=== PATIENT | male | born 1930 | race Caucasian/White ===

== ENCOUNTER 2017-11-16 00:48 | Inpatient (IN) | payer OTHER ==
[2017-11-16] MEDS ORDERED: FENTANYL CITR 100 MCG/2 ML ONE (01:52)
[2017-11-16 02:10] LABS: Protime INR 1.03
[2017-11-16 02:16] LABS: Absolute Lymphocytes (CBC) 0.9 K/uL (0.7-4.9); Absolute Monocytes 0.7 K/uL (0.1-1.3); Absolute Neutrophil 4.1 K/uL (1.8-8.0); Basophils % 0.8 % (0-1.3); Eosinophils % 7.8 % (0-4.4); Lymphocytes % 14.9 % (15.3-44.8); MCH 31.2 pg (27.0-35.0); MCV 89.9 fL (80-100); MPV 9.9 fL (7.6-11.3); Monocytes % 11.6 % (3.3-12.3); RBC Red Blood Cell Count 3.67 M/uL (4.33-5.43)
[2017-11-16 02:32] LABS: Potassium 4.4 mEq/L (3.6-5.0)
[2017-11-16 02:38] LABS: Albumin 2.9 g/dL (3.2-5.5); Bilirubin Direct 0.1 mg/dL (0-0.2); Bilirubin Total 0.7 mg/dL (0.3-1.2); Magnesium 1.9 mg/dL (1.8-2.5); Protein, Total 6.4 g/dL (6.0-8.3)
[2017-11-16 02:41] LABS: CKMB Creatine Kinase MB 1.9 ng/ml (0.3-4.0)
[2017-11-16] MEDS ORDERED: NA CHLORIDE 0.9% 1,000 ML ONE (03:43)
[2017-11-16] MEDS ORDERED: NA CHLORIDE 0.9% 250 ML ONE (03:43)
--- NOTE | 2017-11-16 04:19 | EDPHYS ---
Physician Documentation [facility] Name: Stephon Garcia Age: 87 yrs Sex: Male : 1930 Arrival Date: 11/16/2017 Time: 00:51 Bed 19 Private MD: ED Physician Thai Benoit HPI: 11/16 01:24 This 87 yrs old Male presents to ER via EMS with complaints of Fall Injury. cp 01:24 Details of fall: The patient fell from an upright position. cp 01:24 Onset: The symptoms/episode began/occurred 3 day(s) ago. Associated injuries: The cp patient sustained left hip, decreased range of motion, deformity. Severity of symptoms: in the emergency department the symptoms are unchanged. Historical: - Allergies: 01:02 No Known Allergies; fc - Home Meds: 01:02 vancomycin 750 mg intravenous solr twice a day [Active]; clopidogrel 75 mg oral tab 1 fc tab once daily [Active]; tamsulosin 0.4 mg oral cp24 1 cap once daily [Active]; enoxaparin 30 mg/0.3 mL subcutaneous syrg once daily [Active]; lisinopril 5 mg Oral tab 1 tab once daily [Active]; aspirin 81 mg Oral TbEC 1 tab once daily [Active]; ascorbic acid (vitamin C) 500 mg tab daily [Active]; docusate sodium 100 mg Oral cap 1 cap 2 times per day [Active]; atorvastatin 40 mg oral tab 1 tab nightly [Active]; albuterol sulfate 2.5 mg /3 mL (0.083 %) Inhl nebu q8 hrs prn [Active]; acetaminophen 325 mg Oral tab 2 tabs q4h prn [Active]; Tylenol-Codeine #3 300-30 mg oral tab 1 tab q 4 hrs prn moderate to severe pain [Active]; - PMHx: 01:02 Acute kidney failure; CAD; Atrial Fib; cognitive communication deficit; Hyperlipidemia; fc dysphagia; 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 - Social history:: Smoking status: Patient/guardian denies using tobacco. - Ebola Screening: : Patient negative for fever greater than or equal to 101.5 degrees Fahrenheit, and additional compatible Ebola Virus Disease symptoms Patient denies exposure to infectious person Patient denies travel to an Ebola-affected area in the 21 days before illness onset. ROS: 01:30 Constitutional: Negative for body aches, chills, fever, poor PO intake. cp 01:30 Eyes: Negative for injury, pain, redness, and discharge. cp 01:30 ENT: Positive for drainage from ear(s), hearing loss. 01:30 Cardiovascular: Negative for chest pain, edema. 01:30 Respiratory: Negative for cough, shortness of breath, wheezing. 01:30 Abdomen/GI: Negative for abdominal pain, black/tarry stool, rectal bleeding. 01:30 MS/extremity: Positive for injury or acute deformity, pain, tenderness, of the left hip. 01:30 Skin: Negative for rash. 01:30 Neuro: Negative for altered mental status, headache. 01:30 All other systems are negative. Exam: 01:33 Constitutional: The patient appears in no acute distress, alert, awake, cp non-diaphoretic, non-toxic, well developed, frail. 01:33 Head/Face: Normocephalic, atraumatic. cp 01:35 Eyes: Periorbital structures: appear normal, Pupils: equal, round, and reactive to cp light and accomodation, Extraocular movements: intact throughout, Conjunctiva: normal, no exudate, no injection, Sclera: no appreciated abnormality, Lids and lashes: appear normal, bilaterally. 01:35 ENT: External ear(s): are unremarkable, Ear canal(s): bleeding, that is moderate, in cp the left canal, TM's: not visable, because of blood, Examination of the other ear shows no obvious abnormality, Nose: is normal, Mouth: Oral mucosa: moist, left lower lip droop, Posterior pharynx: Airway: no evidence of obstruction, patent. 01:35 Neck: C-spine: vertebral tenderness, is not appreciated, crepitus, is not appreciated. 01:35 Chest/axilla: Inspection: noted external defibrillator, Palpation: crepitus, is not appreciated, tenderness, is not appreciated. 01:35 Cardiovascular: Rate: normal, Rhythm: regular, Pulses: Pulses are 2+ in right radial artery, right dorsalis pedis artery, left radial artery and left dorsalis pedis artery. Edema: mild bilateral lower legs, JVD: is not appreciated. 01:35 Respiratory: the patient does not display signs of respiratory distress, Respirations: normal, no use of accessory muscles, no retractions, no splinting, no tachypnea, labored breathing, is not present, Breath sounds: are clear throughout, no decreased breath sounds, no stridor, no wheezing. 01:35 Abdomen/GI: Inspection: abdomen appears normal, Bowel sounds: active, all quadrants, Palpation: abdomen is soft and non-tender, in all quadrants. 01:35 Back: pain, is absent. 01:35 Musculoskeletal/extremity: Joints: All joints are normal except the left hip displays deformity, limited range of motion, painful range of motion, tenderness. 01:35 Neuro: Orientation: no acute changes, per family, Mentation: no acute changes, per family, able to follow commands, slow to respond, Memory: no acute changes, per family, Cerebellar function: no acute changes, Motor: decreased left arm due to previous CVA, mild contraction, Sensation: no acute changes. 02:19 ECG was reviewed by the Attending Physician. cp Vital Signs: 01:07 BP 124 / 78; Pulse 63; Resp 17 S; Temp 98.1(O); Pulse Ox 97% on R/A; Weight 83.91 kg jd3 (R); Height 5 ft. 10 in. (177.80 cm) (R); Pain 3/10; 02:05 BP 104 / 67; Pulse 66; Resp 18 S; Pulse Ox 96% on R/A; Pain 3/10; jd3 03:00 BP 103 / 64; Pulse 60; Resp 18; Temp 97.9; Pulse Ox 99% ; Pain 4/10; ea 04:00 BP 114 / 67; Pulse 62; Resp 18; Pulse Ox 99% on R/A; Pain 3/10; ea 05:00 BP 115 / 66; Pulse 62; Resp 18; Temp 97.8; Pulse Ox 98% ; Pain 0/10; ea 06:50 BP 123 / 86; Pulse 57; Resp 18; Temp 97.6(O); Pulse Ox 99% on R/A; Pain 0/10; ea 01:07 Body Mass Index 26.54 (83.91 kg, 177.80 cm) jd3 [place] Coma Score: 00:51 Eye Response: spontaneous(4). Verbal Response: oriented(5). Motor Response: obeys ea commands(6). Total: 15. 02:05 Eye Response: spontaneous(4). Verbal Response: oriented(5). Motor Response: obeys ea commands(6). Total: 15. 03:00 Eye Response: spontaneous(4). Verbal Response: oriented(5). Motor Response: obeys ea commands(6). Total: 15. 04:00 Eye Response: spontaneous(4). Verbal Response: oriented(5). Motor Response: obeys ea commands(6). Total: 15. 05:00 Eye Response: spontaneous(4). Verbal Response: oriented(5). Motor Response: obeys ea commands(6). Total: 15. 06:50 Eye Response: spontaneous(4). Verbal Response: oriented(5). Motor Response: obeys ea commands(6). Total: 15. Trauma Score (Adult): 00:51 Eye Response: spontaneous(1); Verbal Response: oriented(1); Motor Response: obeys ea commands(2); Systolic BP: > 89 mm Hg(4); Respiratory Rate: 10 to 29 per min(4); [place] Score: 15; Trauma Score: 12 MDM: 01:03 Patient medically screened. 01:30 Differential diagnosis: abrasion, closed head injury, contusion, fracture, laceration, cp multiple trauma. 04:16 Data reviewed: vital signs, nurses notes, lab test result(s), EKG, radiologic studies, cp plain films. Physician consultation: Mason Quiles MD was called at 04:16, was contacted at 04:16, regarding admission, to the telemetry unit. patient's condition. 04:22 Physician consultation: Neel Bethea MD was called at 04:22, was contacted at 04:22, cp regarding consult, patient's condition. 11/16 01:14 Order name: Basic Metabolic Panel; Complete Time: 03:02 cp 11/16 03:02 Interpretation: Normal except: BUN 30; CRE 1.77; GFR 37. cp 11/16 01:14 Order name: BNP; Complete Time: 03:02 cp 11/16 01:14 Order name: CBC with Diff; Complete Time: 03:02 cp 11/16 03:03 Interpretation: Normal except: WBC 6.3; RBC 3.67; HGB 11.5; HCT 33.0; PLT 161; LYM% cp 14.9; EOSINOPHIL % 7.8. 11/16 01:14 Order name: Ckmb; Complete Time: 03:02 cp 11/16 01:14 Order name: CPK; Complete Time: 03:02 cp 11/16 01:14 Order name: LFT's; Complete Time: 03:02 cp 11/16 03:03 Interpretation: Normal except: ALB 2.9; A/G 0.8. cp 11/16 01:14 Order name: Magnesium; Complete Time: 03:02 cp 11/16 01:14 Order name: PT-INR; Complete Time: 02:14 cp 11/16 02:14 Interpretation: Reviewed. cp 11/16 01:14 Order name: Ptt, Activated; Complete Time: 02:14 cp 11/16 01:14 Order name: Troponin (emerg Dept Use Only); Complete Time: 03:02 cp 11/16 01:14 Order name: XRAY Chest (1 view) cp 11/16 01:14 Order name: XRAY Hip LEFT 2 view cp 11/16 04:21 Order name: Urine Dipstick--Ancillary (enter results) rg2 11/16 01:14 Order name: EKG; Complete Time: 01:15 cp 11/16 01:14 Order name: Cardiac monitoring; Complete Time: 01:24 cp 11/16 01:14 Order name: EKG - Nurse/Tech; Complete Time: 02:17 cp 11/16 01:14 Order name: IV Saline Lock; Complete Time: 01:46 cp 11/16 01:14 Order name: Labs collected and sent; Complete Time: 01:46 cp 11/16 01:14 Order name: O2 Per Protocol; Complete Time: 01:23 cp 11/16 01:14 Order name: O2 Sat Monitoring; Complete Time: 01:23 cp 11/16 01:14 Order name: Urine Dipstick-Ancillary (obtain specimen); Complete Time: 04:32 cp 11/16 01:14 Order name: XRAY Femur LEFT cp 11/16 01:14 Order name: XRAY Pelvis cp 11/16 02:49 Order name: Head C Spine Cap Wo Con EDMS 11/16 04:18 Order name: Iraheta; Complete Time: 04:31 cp EC:19 Rate is 62 beats/min. Rhythm is regular. CT interval is normal. QRS interval is cp prolonged at 112 msec. QT interval is normal. T waves are Inverted in leads II, aVF. Interpreted by me. Reviewed by me. Administered Medications: 02:00 Drug: fentaNYL (PF) 25 mcg Route: IVP; Site: right antecubital; jd3 02:37 Follow up: Response: No adverse reaction; Pain is decreased jd3 03:50 Drug: NS 0.9% 250 ml {Note: PICC line to right upper arm.} Route: IV; Rate: bolus; ea Site: Other; 04:32 Follow up: IV Status: Completed infusion ea 03:50 Drug: NS 0.9% 1000 ml {Note: picc line to right upper arm.} Route: IV; Rate: 75 ml/hr; ea Site: Other; 04:32 Follow up: IV Status: Infusion continued upon admission ea Disposition: 14:50 Co-signature as Attending Physician, Thai Benoit MD I agree with the assessment and anne plan of care. Disposition: 11/16/17 04:18 Hospitalization ordered by Mason Quiles for Inpatient Admission. Preliminary diagnosis are Intertrochanteric fracture of femur - Left, Other slipping, tripping and stumbling and falls. - Bed requested for Telemetry/MedSurg (Inpatient). - Status is Inpatient Admission. hj - Condition is Stable. - Problem is new. - Symptoms have improved. UTI on Admission? No Signatures: Dispatcher [employer] EDVT Helen Anderson RN RN kl Anderson, Corey, MD MD cha Chretien, Felicia, RN RN fc Joaquin, Henry, RN RN hj Page, Corey, BERTHA STONE cp Sonia Lorenzo RN RN ea Davies, Jonathon, RN RN jd3 Corrections: (The following items were deleted from the chart) 02:49 01:15 Head C Spine CAP W Con+CT.RAD.BRZ ordered. EDVT EDMS 04:18 04:18 Hospitalization Ordered by Mason Quiles MD for Inpatient Admission. Preliminary cp diagnosis is Intertrochanteric fracture of femur - Left. Bed requested for Telemetry/MedSurg (Inpatient). Status is Inpatient Admission. Condition is Stable. Problem is new. Symptoms have improved. UTI on Admission? No. cp 04:27 04:18 11/16/2017 04:18 Hospitalization Ordered by Mason Quiles MD for Inpatient kl Admission. Preliminary diagnosis is Intertrochanteric fracture of femur - Left; Other slipping, tripping and stumbling and falls. Bed requested for Telemetry/MedSurg (Inpatient). Status is Inpatient Admission. Condition is Stable. Problem is new. Symptoms have improved. UTI on Admission? No. cp 07:53 04:27 11/16/2017 04:18 Hospitalization Ordered by Mason Quiles MD for Inpatient hj Admission. Preliminary diagnosis is Intertrochanteric fracture of femur - Left; Other slipping, tripping and stumbling and falls. Bed requested for Telemetry/MedSurg (Inpatient). Status is Inpatient Admission. Condition is Stable. Problem is new. Symptoms have improved. UTI on Admission? No. kl
--- NOTE | 2017-11-16 04:19 | ER ---
Nurse's Notes [facility] Name: Stephon Garcia Age: 87 yrs Sex: Male : 1930 Arrival Date: 11/16/2017 Time: 00:51 Bed 19 Private MD: Diagnosis: Intertrochanteric fracture of femur-Left;Other slipping, tripping and stumbling and falls Presentation: 11/16 00:51 Presenting complaint: EMS states: that pt feel approx 24 hrs ago. Today when pt fc [facility] Results came back with fracture of hip. Transition of care: patient was received from another setting of care (long-term care facility), [facility]. Onset of symptoms was November 15, 2017. Risk Assessment: Do you want to hurt yourself or someone else? Patient reports no desire to harm self or others. Initial Sepsis Screen:. Care prior to arrival: None. 00:51 Method Of Arrival: EMS: [facility] fc 00:51 Acuity: FRANCK 3 fc 00:51 Mechanism of Injury: Fall from standing position. family reports pt fell on Monday and ea has been complaining of pain to left leg ever since. Trauma event details: Injury occurred in the [facility], Injury occurred: [facility]. 00:51 Initial Sepsis Screen: Does the patient meet any 2 criteria? No. Patient's initial ea sepsis screen is negative. Does the patient have a suspected source of infection? No. Patient's initial sepsis screen is negative. Trauma Activation: Alert Physician: ED Physician; Name: Cy; Notified At: 00:51; Arrived At: Physician: General Surgeon; Name: ; Notified At: 00:51; Arrived At: Physician: Radiology; Name: Jo; Notified At: 00:51; Arrived At: 00:53 Physician: Respiratory; Name: ; Notified At: 00:51; Arrived At: Physician: Lab; Name: ; Notified At: 00:51; Arrived At: Historical: - Allergies: 01:02 No Known Allergies; fc - Home Meds: 01:02 vancomycin 750 mg intravenous solr twice a day [Active]; clopidogrel 75 mg oral tab 1 fc tab once daily [Active]; tamsulosin 0.4 mg oral cp24 1 cap once daily [Active]; enoxaparin 30 mg/0.3 mL subcutaneous syrg once daily [Active]; lisinopril 5 mg Oral tab 1 tab once daily [Active]; aspirin 81 mg Oral TbEC 1 tab once daily [Active]; ascorbic acid (vitamin C) 500 mg tab daily [Active]; docusate sodium 100 mg Oral cap 1 cap 2 times per day [Active]; atorvastatin 40 mg oral tab 1 tab nightly [Active]; albuterol sulfate 2.5 mg /3 mL (0.083 %) Inhl nebu q8 hrs prn [Active]; acetaminophen 325 mg Oral tab 2 tabs q4h prn [Active]; Tylenol-Codeine #3 300-30 mg oral tab 1 tab q 4 hrs prn moderate to severe pain [Active]; - PMHx: 01:02 Acute kidney failure; CAD; Atrial Fib; cognitive communication deficit; Hyperlipidemia; fc dysphagia; 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 - Social history:: Smoking status: Patient/guardian denies using tobacco. - Ebola Screening: : Patient negative for fever greater than or equal to 101.5 degrees Fahrenheit, and additional compatible Ebola Virus Disease symptoms Patient denies exposure to infectious person Patient denies travel to an Ebola-affected area in the 21 days before illness onset. Screenin:53 Abuse screen: Denies threats or abuse. Nutritional screening: No deficits noted. fc Tuberculosis screening: No symptoms or risk factors identified. Fall Risk Fall in past 12 months (25 points). Secondary diagnosis (15 points) CVA, No IV (0 pts). Ambulatory Aid- Crutches/Cane/Walker (15 pts). Gait- Impaired (20 pts.). Mental Status- Overestimates/Forgets Limitations (15 pts.). Total Chan Fall Scale indicates High Risk Score (45 or more points). Fall prevention measures have been instituted. Side Rails Up X 2 Placed Close to Nursing Station Frequent Obs/Assessments Occuring As available patient and family educated on Fall Prevention Program and Strategies. Primary Survey: 00:51 A: Airway: patent. Breathing/Chest: Respiratory pattern: regular, Respiratory effort: ea spontaneous, unlabored. Circulation: Skin color: pink, Skin temperature: warm, dry. Circulation: Heart tones present. Disability Alert. 01:51 Reassessment Breathing/Chest Respiratory pattern Regular Respiratory effort Spontaneous ea Unlabored Breath sounds Clear Chest inspection Symmetrical. Secondary Survey: 00:51 HEENT: No deficits noted. Gastrointestinal: No deficits noted. : No deficits noted. ea Musculoskeletal: Reports pain in left leg and pelvis and left hip. Assessment: 01:05 General: Appears uncomfortable, Behavior is calm, cooperative. Pain: Complains of pain jd3 in left hip Pain currently is 1 out of 10 on a pain scale. at worst was 10 out of 10 on a pain scale. Quality of pain is described as aching. Neuro: Level of Consciousness is awake, alert, obeys commands, Oriented to person, situation. Cardiovascular: Heart tones S1 S2 present Capillary refill < 3 seconds Patient's skin is warm and dry. Respiratory: Airway is patent Respiratory effort is even, unlabored, Respiratory pattern is regular, symmetrical, Breath sounds are clear bilaterally. GI: Abdomen is round Bowel sounds present X 4 quads. Abd is soft and non tender X 4 quads. : No signs and/or symptoms were reported regarding the genitourinary system. EENT: No signs and/or symptoms were reported regarding the EENT system. Derm: Skin is intact, Skin is dry, Skin is normal, Skin temperature is warm. Musculoskeletal: Circulation, motion, and sensation intact. Range of motion: intact in all extremities. 02:06 Reassessment: Patient appears in no apparent distress at this time. No changes from jd3 previously documented assessment. Patient and/or family updated on plan of care and expected duration. Pain level reassessed. 03:55 Reassessment: Patient and/or family updated on plan of care and expected duration. Pain ea level reassessed. Patient is alert, oriented x 3, equal unlabored respirations, skin warm/dry/pink. 04:33 Reassessment: Patient and/or family updated on plan of care and expected duration. Pain ea level reassessed. Patient is alert, oriented x 3, equal unlabored respirations, skin warm/dry/pink. Son at bedside. 05:15 Reassessment: Patient and/or family updated on plan of care and expected duration. Pain ea level reassessed. Patient is alert, oriented x 3, equal unlabored respirations, skin warm/dry/pink. 06:58 Reassessment: Patient and/or family updated on plan of care and expected duration. Pain ea level reassessed. Patient is alert, oriented x 3, equal unlabored respirations, skin warm/dry/pink. Vital Signs: 01:07 BP 124 / 78; Pulse 63; Resp 17 S; Temp 98.1(O); Pulse Ox 97% on R/A; Weight 83.91 kg jd3 (R); Height 5 ft. 10 in. (177.80 cm) (R); Pain 3/10; 02:05 BP 104 / 67; Pulse 66; Resp 18 S; Pulse Ox 96% on R/A; Pain 3/10; jd3 03:00 BP 103 / 64; Pulse 60; Resp 18; Temp 97.9; Pulse Ox 99% ; Pain 4/10; ea 04:00 BP 114 / 67; Pulse 62; Resp 18; Pulse Ox 99% on R/A; Pain 3/10; ea 05:00 BP 115 / 66; Pulse 62; Resp 18; Temp 97.8; Pulse Ox 98% ; Pain 0/10; ea 06:50 BP 123 / 86; Pulse 57; Resp 18; Temp 97.6(O); Pulse Ox 99% on R/A; Pain 0/10; ea 01:07 Body Mass Index 26.54 (83.91 kg, 177.80 cm) jd3 [place] Coma Score: 00:51 Eye Response: spontaneous(4). Verbal Response: oriented(5). Motor Response: obeys ea commands(6). Total: 15. 02:05 Eye Response: spontaneous(4). Verbal Response: oriented(5). Motor Response: obeys ea commands(6). Total: 15. 03:00 Eye Response: spontaneous(4). Verbal Response: oriented(5). Motor Response: obeys ea commands(6). Total: 15. 04:00 Eye Response: spontaneous(4). Verbal Response: oriented(5). Motor Response: obeys ea commands(6). Total: 15. 05:00 Eye Response: spontaneous(4). Verbal Response: oriented(5). Motor Response: obeys ea commands(6). Total: 15. 06:50 Eye Response: spontaneous(4). Verbal Response: oriented(5). Motor Response: obeys ea commands(6). Total: 15. Trauma Score (Adult): 00:51 Eye Response: spontaneous(1); Verbal Response: oriented(1); Motor Response: obeys ea commands(2); Systolic BP: > 89 mm Hg(4); Respiratory Rate: 10 to 29 per min(4); [place] Score: 15; Trauma Score: 12 ED Course: 00:51 Patient arrived in ED. fc 00:51 Arm band placed on Patient placed in an exam room, on a stretcher. fc 00:51 Patient maintains SpO2 saturation greater than 95% on room air. Thermoregulation: warm ea blanket given to patient. 00:53 Triage completed. fc 00:53 Patient has correct armband on for positive identification. Bed in low position. Call fc light in reach. Side rails up X2. 00:54 No provider procedures requiring assistance completed. fc 01:03 Thai Mendez PA is PHCP. cp 01:03 Thai Benoit MD is Attending Physician. cp 01:04 Rajeev Joyner RN is Primary Nurse. jd3 01:46 Accessed PICC line. Clean \T\ dry. Dressing intact. Flushes easily. jd3 01:55 X-ray completed. Portable x-ray completed in exam room. Patient tolerated procedure kw well. 01:56 XRAY Chest (1 view) In Process Unspecified. EDMS 01:56 XRAY Hip LEFT 2 view In Process Unspecified. EDMS 01:57 XRAY Femur LEFT In Process Unspecified. EDMS 01:57 XRAY Pelvis In Process Unspecified. EDMS 03:03 Radiology exam delayed due to lab results not completed at this time. (BUN/Creatinine). kw1 03:[address] via stretcher. kw1 03:30 CT completed. Patient tolerated procedure well. Patient moved back from CT. kw1 03:37 Head C Spine Cap Wo Con In Process Unspecified. EDMS 03:45 Iraheta cath inserted, using sterile technique, 18 Fr., by career specialist, balloon inflated, to ea gravity drainage, urine specimen collected. returned clear yellow urine. Patient tolerated well. 04:17 Mason Quiles MD is Hospitalizing Provider. cp 07:53 Patient admitted, IV remains in place. intact. hj Administered Medications: 02:00 Drug: fentaNYL (PF) 25 mcg Route: IVP; Site: right antecubital; jd3 02:37 Follow up: Response: No adverse reaction; Pain is decreased jd3 03:50 Drug: NS 0.9% 250 ml {Note: PICC line to right upper arm.} Route: IV; Rate: bolus; ea Site: Other; 04:32 Follow up: IV Status: Completed infusion ea 03:50 Drug: NS 0.9% 1000 ml {Note: picc line to right upper arm.} Route: IV; Rate: 75 ml/hr; ea Site: Other; 04:32 Follow up: IV Status: Infusion continued upon admission ea Intake: 00:51 PO: 0ml; Total: 0ml. ea Outcome: 04:18 Decision to Hospitalize by Provider. cp 04:29 Pt being admitted. Patient's length of stay extended due to ea 04:30 Instructed on the need for admit. ea 07:52 Admitted to Med/surg accompanied by tech, via stretcher, room 224, with chart, Report hj called to FROILAN Quick 07:52 Condition: stable 07:53 Patient left the ED. brian Signatures: Dispatcher [employer] EDMS Cristin Maurice RN RN fc Whitley, Kimberlee kw Joaquin, Henry, RN RN hj Page, Corey, PA PA cp Antunez, Elena, RN RN ea Davies, Jonathon, RN RN jd3 Wilhelm, Kimberly kw1 Corrections: (The following items were deleted from the chart) 02:06 01:05 Neuro: Level of Consciousness is awake, alert, obeys commands, Oriented to jd3 person, place, time, situation, jd3 02:06 01:07 BP 124 / 78; Pulse 63bpm; Resp 17bpm; Spontaneous; Pulse Ox 97% RA; Temp 98.1F jd3 Oral; 83.91 kg Reported; Height 5 ft. 10 in. Reported; BMI: 26.5; Pain 1/10; jd3 04:56 03:00 BP 103 / 64; Pulse 58bpm; Resp 18bpm; Pulse Ox 99%; Temp 97.9F; Pain 4/10; ea ea 04:56 04:00 BP 114 / 67; Pulse 18bpm; Resp 62bpm; Pulse Ox 99% RA; Pain 3/10; ea ea
--- NOTE | 2017-11-16 06:09 | P.HP ---
Certification for Inpatient Patient admitted to: Inpatient With expected LOS: >2 Midnights Practitioner: I am a practitioner with admitting privileges, knowledge of patient current condition, hospital course, and medical plan of care. Services: Services provided to patient in accordance with Admission requirements found in Title 42 Section 412.3 of the Code of Federal Regulations Patient History Date of Service: 11/16/17 Reason for admission: hip fracture History of Present Illness: Mr Garcia is an 87 yeas old male with multiple medical problems including COPD, dementia, HTN, CKD, resident of [facility], currently treated with IV Vancomycin due to left ear infection positive for MRSA. The patient sustained a fall yesterday, landing over his left side. The patient then start complaining of left hip pain, unable to bear weight on the left leg. Hip XR was ordered on the detention, it was remarkable for left hip fracture. In ER he had trauma work up. CT chest was remarkable for a right lower lobe cavitary lesion with signs of necrosis and possible abscess. No fever documented. Allergies No Known Allergies Allergy (Verified 08/05/12 09:44) - Past Medical/Surgical History -: CKD -: COPD -: MRSA ear infection -: A.Fib -: HTN -: Dementia Past Surgical History: Reviewed- Non-Contributory - Family History Family History: Reviewed- Non-Contributory - Social History Alcohol use: No CD- Drugs: No Place of Residence: [facility] Review of Systems 10-point ROS is otherwise unremarkable Physical Examination - Physical Exam General: Alert, In no apparent distress HEENT: Atraumatic, PERRLA, Mucous membr. moist/pink, Other (left ear blody secretion on external canal), EOMI, Sclerae nonicteric Neck: Supple, 2+ carotid pulse no bruit, No LAD, Without JVD or thyroid abnormality Respiratory: Diminished, Other (bibasilar crackles more on the right) Cardiovascular: Normal S1 S2, No gallops Gastrointestinal: Normal bowel sounds, No tenderness Musculoskeletal: No tenderness Integumentary: No rashes Neurological: Normal gait, Normal speech, Normal strength at 5/5 x4 extr, Normal tone, Normal affect Lymphatics: No axilla or inguinal lymphadenopathy - Studies Laboratory Data (last 24 hrs) 11/16/17 01:43: PT 12.2, INR 1.03, APTT 25.7 11/16/17 01:43: WBC 6.3 D, Hgb 11.5 L, Hct 33.0 L, Plt Count 161 D 11/16/17 01:43: B-Natriuretic Peptide 305 H 11/16/17 01:43: Sodium 137, Potassium 4.4, BUN 30 H, Creatinine 1.77 H, Glucose 99, Magnesium 1.9, Total Bilirubin 0.7, AST 22, ALT 22, Alkaline Phosphatase 64 Assessment and Plan - Problems (Diagnosis) (1) Hip fracture Current Visit: Yes Status: Acute Qualifiers: Encounter type: initial encounter Fracture type: closed Laterality: left Qualified Code(s): S72.002A - Fracture of unspecified part of neck of left femur, initial encounter for closed fracture (2) Otitis externa Current Visit: Yes Status: Acute Qualifiers: Otitis externa type: malignant Chronicity: chronic Laterality: left Qualified Code(s): H60.22 - Malignant otitis externa, left ear (3) COPD (chronic obstructive pulmonary disease) Current Visit: Yes Status: Acute Qualifiers: COPD type: unspecified COPD Qualified Code(s): J44.9 - Chronic obstructive pulmonary disease, unspecified (4) Necrotizing pneumonia Current Visit: Yes Status: Acute (5) HTN (hypertension) Current Visit: Yes Status: Acute Qualifiers: Hypertension type: essential hypertension Qualified Code(s): I10 - Essential (primary) hypertension (6) CKD (chronic kidney disease) Current Visit: Yes Status: Acute Qualifiers: Chronic kidney disease stage: stage 3 (moderate) Qualified Code(s): N18.3 - Chronic kidney disease, stage 3 (moderate) - Plan The patient will be admitted to the hospital due to left interthrochanteric fracture. Dr Bethea has been consulted. He has also been treated with IV Vancomycin at [facility] due to MRSA left ear infection. Part of trauma work up with CT chest was incidentally showing a necrotizing cavitary lesion on the right lower lobe concerning for abscess formation. Will continue empiric treatment with IV Vancomycin, will add IV Zosyn, however this is most likely MRSA. Will order Sputum culture, blood culture, Dr Laboy consult. - Advance Directives Does patient have a Living Will: Yes Does patient have a Durable POA for Healthcare: No - Code Status/Comfort Care Code Status Assessed: Yes Code Status: Full Code
[2017-11-16 06:11] LABS: Urine Blood NEGATIVE (NEG); Urine Glucose NEGATIVE (NEG); Urine Protein NEGATIVE (NEG); Urine Specific Gravity 1.015 (1.005-1.030); Urine pH 5.5 (5.0-7.0)
[2017-11-16] MEDS ORDERED: ACETAMINOPHEN 500 MG TAB PO PRN (07:09)
[2017-11-16] MEDS ORDERED: ONDANSETRON 4 MG/2 ML VIAL IV PRN (07:09)
[2017-11-16] MEDS ORDERED: NA CHLORIDE 0.9% 1,000 ML IV SCH (07:09)
--- NOTE | 2017-11-16 08:25 | EKG ---
Test Date: 2017-11-16 Test Time: 02:12:28 Inspector Filters: JACE MEASUREMENT RESULTS: Intervals: Rate: 62 MI: 148 QRSD: 112 QT: 450 QTc: 456 Olmitz: P: 77 MI: 148 QRS: 69 T: -53 INTERPRETIVE STATEMENTS: Sinus rhythm with occasional premature ventricular complexes Inferior infarct, age undetermined Abnormal ECG Compared to ECG 05/28/2006 22:52:07 No significant changes Electronically Signed On 11-16-17 08:24:25 CDT by Portillo Hernández
[2017-11-16] MEDS ORDERED: PIPER/TAZO/NS 2.25gm 2.25 GM/50 ML BAG IVPB SCH (09:00)
[2017-11-16] MEDS ORDERED: VANCOMYCIN 1.5 GM in NA CHLORIDE 0.9% 500 ML IVPB SCH (09:00)
--- NOTE | 2017-11-16 09:43 | RAD REPORT ---
EXAM DESCRIPTION: RAD - Femur Left - 11/16/2017 1:56 am CLINICAL HISTORY: fall Trauma, left hip pain COMPARISON: Head C Spine Cap Wo Con dated 11/16/2017; Pelvis dated 11/16/2017; Hip Left 2 View dated FINDINGS: AP pelvis, left hip and left femur multiple projections. Subcapital fracture proximal left femur is seen with varus angulation. No dislocation is evident. No aggressive bone lesion.
--- NOTE | 2017-11-16 09:45 | RAD REPORT ---
EXAM DESCRIPTION: RAD - Chest Single View - 11/16/2017 1:56 am CLINICAL HISTORY: Trauma, chest pain COMPARISON: None. FINDINGS: Portable technique limits examination quality. The lungs are grossly clear. The heart is upper limit normal size with postsurgical changes present. Multiple electronic devices project over the chest, limiting assessment. No displaced fractures.Right -sided venous catheter tip in the SVC.
--- NOTE | 2017-11-16 10:05 | RAD REPORT ---
EXAM DESCRIPTION: CT - Head C Spine Cap Wo Con - 11/16/2017 7:18 am CLINICAL HISTORY: Trauma, head and neck injury. Chest, abdomen and pelvis pain. fall 3 days ago COMPARISON: Pelvis dated 11/16/2017; Hip Left 2 View dated 11/16/2017 TECHNIQUE: CT head without contrast. CT cervical spine without contrast with coronal and sagittal reformatted images. CT chest, abdomen and pelvis without contrast with coronal and sagittal reformatted images of the spi ne. All CT scans are performed using dose optimization technique as appropriate and may include automated exposure control or mA/KV adjustment according to patient size. FINDINGS: CT HEAD WITHOUT CONTRAST: No intracranial hemorrhage, hydrocephalus or extra-axial fluid collection. Gliosis is seen in the di stribution of the right middle cerebral artery compatible with old infarct. No midline shift is seen. The paranasal sinuses and mastoids are clear. The calvarium is intact. CT CERVICAL SPINE WITHOUT CONTRAST: No fracture or subluxation. Prevertebral soft tissues are normal in thickness. Multilevel degenerativ e changes are present throughout the cervical spine. CT CHEST, ABDOMEN, PELVIS WITHOUT CONTRAST: NOTE: Lack of contrast is a significant limitation in the assessment of trauma related findings. Spec ifically, solid organ, vascular and bowel evaluation is significantly limited. Cavitary lung lesion is present right lower lobe laterally abutting the pleural surface (image 41/137 ).The lungs are otherwise clear.No pneumothorax or pericardial/pleural fluid. Postsurgical changes ar e present at the gastroesophageal junction. Thoracic aorta is ectatic measuring up to 4.5 cm. No evidence of intra-abdominal visceral injury, free fluid or free air is seen within the above detai led limitations. Cholelithiasis noted. Bilateral hydronephrosis is seen. Large calcifications are see n in the pancreatic head region which may be within the common bile duct. No concerning pelvic findings. Fracture proximal left femur seen. IMPRESSION: Proximal left femoral fracture. Cholelithiasis with choledocholithiasis likely present. Pleural base cavitary lung lesion is present in the right lower lobe. Infection and/or neoplastic deangelo ologies are possible. Follow-up CT chest would be advised in 3 months.
--- NOTE | 2017-11-16 10:32 | RAD REPORT ---
EXAM DESCRIPTION: RAD - Hip Left 2 View - 11/16/2017 1:56 am CLINICAL HISTORY: Fall Trauma, left hip pain COMPARISON: Head C Spine Cap Wo Con dated 11/16/2017; Pelvis dated 11/16/2017; Hip Left 2 View dated FINDINGS: AP pelvis, left hip and left femur multiple projections. Subcapital fracture proximal left femur is seen with varus angulation. No dislocation is evident. No aggressive bone lesion.
--- NOTE | 2017-11-16 10:32 | RAD REPORT ---
EXAM DESCRIPTION: RAD - Pelvis - 11/16/2017 1:56 am CLINICAL HISTORY: Fall Trauma, left hip pain COMPARISON: Head C Spine Cap Wo Con dated 11/16/2017; Pelvis dated 11/16/2017; Hip Left 2 View dated FINDINGS: AP pelvis, left hip and left femur multiple projections. Subcapital fracture proximal left femur is seen with varus angulation. No dislocation is evident. No aggressive bone lesion.
--- NOTE | 2017-11-16 11:54 | P.CNS ---
Date of Consult: 11/16/17 Reason for Consult: Right lower lobe pneumonia Chief Complaint: hip fracture History of Present Illness: Patient is 87 years of age admitted with left hip fracture he had fallen twice according to the son there is no history of any pulmonary complaints patient has had a stroke affecting the left leg lost a lot of weight recently has some difficulty swallowing and was found to have was small right lower lobe cavitary pneumonia there is no history of fever or chills patient was treated for Mr SA infection of the right ear with vancomycin never smoked his significant history of coronary artery disease status post CABG denies any chest pain he otherwise looks well Allergies No Known Allergies Allergy (Verified 11/16/17 06:22) Home Medications: Acetaminophen 325 mg PO Q4H PRN 11/16/17 Albuterol Inhaler [Ventolin Inhaler*] 2.5 inh XX Q8H PRN 11/16/17 Ascorbic Acid [Vitamin C] 500 mg PO DAILY 11/16/17 Aspirin [Aspirin EC 81 MG] 81 mg PO DAILY 11/16/17 Atorvastatin Calcium [Lipitor] 40 mg PO BEDTIME 11/16/17 Clopidogrel Bisulfate [Plavix*] 75 mg PO DAILY 11/16/17 Codeine/APAP [Tylenol #3*] 1 tab PO Q4H PRN 11/16/17 Docusate [Colace Cap] 100 mg PO BID 11/16/17 Enoxaparin Sodium [Lovenox 30 MG INJ] 30 mg SQ DAILY 11/16/17 Lisinopril 5 mg PO DAILY 11/16/17 Tamsulosin [Flomax] 0.4 mg PO BEDTIME 11/16/17 - Past Medical/Surgical History -: CKD -: COPD -: MRSA ear infection -: A.Fib -: HTN -: Dementia - Social History Alcohol use: No CD- Drugs: No Place of Residence: [facility] Review of Systems General: Weakness Musculoskeletal: Other (Her pain in the left hip), Unremarkable Physical Examination Temp Pulse Resp BP Pulse Ox 99.0 F 67 24 H 140/88 100 11/16/17 08:00 11/16/17 08:00 11/16/17 08:00 11/16/17 08:00 11/16/17 08:00 General: Alert, Oriented x3 HEENT: Atraumatic Neck: Supple Respiratory: Clear to auscultation bilaterally Cardiovascular: No edema, Normal pulses Gastrointestinal: Normal bowel sounds, Soft and benign Musculoskeletal: Other (Left leg externally rotated) Laboratory Data (last 24 hrs) 11/16/17 01:43: PT 12.2, INR 1.03, APTT 25.7 11/16/17 01:43: WBC 6.3 D, Hgb 11.5 L, Hct 33.0 L, Plt Count 161 D 11/16/17 01:43: B-Natriuretic Peptide 305 H 11/16/17 01:43: Sodium 137, Potassium 4.4, BUN 30 H, Creatinine 1.77 H, Glucose 99, Magnesium 1.9, Total Bilirubin 0.7, AST 22, ALT 22, Alkaline Phosphatase 64 - Problems (1) Cavitary pneumonia Current Visit: Yes Status: Acute Plan: Patient is 87 years of age she has a history of 's stroke recurrent falls admitted with left hip fracture the difficulty swallowing at times CT scan showed right lower lobe pneumonia with a small cavity patient has renal insufficiency p.r.n. in his elevated white count normal cultures pending I suggest changing over to Augmentin elix 500 mg 3 times a day OR dose adjusted by pharmacy at clinically looks septic no prior history of COPD is never smoked patient is cleared to have surgery from pulmonary perspective
--- NOTE | 2017-11-16 14:56 | CON ---
Date of Consultation: 11/16/2017 Reason For Consultation: Left hip pain. History Of Present Illness: Mr. Garcia is an 87-year-old male, who presented to the ER yesterday wit h history of a fall approximately 3 days prior to the presentation with subsequent left hip pain. Th e patient has a history of COPD, dementia, hypertension, chronic kidney disease, and is currently get ting IV vancomycin for left ear infection. The patient reports minimal ambulation prior to the fall and states that he does require help with when he is mobilizing. There was a limited history seconda ry to the patient's history of dementia. He reports pain in his left hip, otherwise denies any other musculoskeletal complaints. Review of Systems: As above, otherwise negative. Past Medical History: Includes COPD, hypertension, atrial fibrillation, and ear infection. Allergies: NO KNOWN DRUG ALLERGIES. Home Medications: Plavix, vancomycin, tamsulosin, Lovenox, Colace, atorvastatin, albuterol, acetamin ophen. Social History: Denies tobacco or alcohol use. Physical Examination: General: No apparent distress. HEENT: Normocephalic, atraumatic. Neck: Supple. Cardiovascular: Brisk refill to all digits. Chest: Nonlabored breathing. Abdomen: Nondistended. Psychiatric: Responds to exam. Musculoskeletal: Bilateral upper extremities, functional range of motion without pain. No gross def ormities. No obvious dislocation. Right lower extremity, functional range of motion without pain. No gross deformities. No obvious dislocations. Left lower extremity, pain with range of motion of t he left hip, tenderness to palpation of the left hip. No abrasions or lacerations over the lateral a spect of the hip. No tenderness to palpation of the knee, tibia, or foot. Moves toes grossly. Repo rts gross sensation intact over the dorsal and plantar surface of the left foot. X-rays: X-rays of his left hip and femur demonstrated a displaced left femoral neck fracture. Assessment And Plan: Mr. Garcia is an 87-year-old male with a left displaced femoral neck fracture. I discussed with the patient at length his diagnosis and the need for left hip hemiarthroplasty. Ri sks and benefits associated with the procedure were discussed with the patient and he expressed under standing. I will attempt to contact his son to further discuss the procedure and his diagnosis. The patient had a CAT scan of his chest in the emergency room, which demonstrated a possible cavitary amari ng lesion in the right lower lobe and we are awaiting further evaluation by Dr. Laboy. The patien t is also wearing a LifeVest and we are awaiting Cardiology evaluation and clearance. CV/MODL Voice ID: [id number] Report ID: [id number]
[2017-11-16 18:30] LABS: Hematocrit 28.8 % (39.6-49.0)
--- NOTE | 2017-11-16 19:11 | RAD REPORT ---
EXAM DESCRIPTION: CT - Abdomen Pelvis Wo Contrast - 11/16/2017 6:55 pm CLINICAL HISTORY: Hematuria and abdominal pain COMPARISON: November 16, 2017 cat scan TECHNIQUE: Computed axial tomography of the abdomen and pelvis was obtained. IV was not requested. O ral contrast was given. Coronal reconstructions performed. All CT scans are performed using dose optimization technique as appropriate and may include automated exposure control or mA/KV adjustment according to patient size. FINDINGS: The evaluation of solid organs and vessels is limited secondary to the lack of contrast a dministration. An 18 millimeter right lower lobe cavitary lesion is unchanged. It abuts the pleural surface. Postsurgical changes involve the gastroesophageal junction. The liver and spleen appear grossly normal. Gallstones are present without gallbladder wall thickening. A 20 millimeter calcification within the region of the pancreatic head probably represents a calcified lymph node. Another consideration is th at it lies within the bile duct. The pancreas is atrophic and portions are not well seen. The left kidney is small with cortical thinning. Bilateral hydronephrosis is noted. The right ureter is dilated throughout its course. The left ureter does not appear to be significantly dilated. A Fole y catheter is present within the bladder. The bladder wall is thickened and contains increased densit y. A subcapital femoral fracture extending into the femoral neck is again demonstrated. IMPRESSION: Left femoral neck fracture Increased density within the bladder presumably representing blood. The bladder wall is thickened. Mi ld bilateral hydronephrosis is seen. The right ureter is dilated throughout its course. Cholelithiasis without cholecystitis 18 millimeter right lower lobe cavitary lesion could either be infectious or neoplastic
[2017-11-16] MEDS: ATORVASTATIN 40 MG TAB PO SCH (21:40)
[2017-11-16] MEDS: AMOX TR/K CLAV 400MG CHEW TAB PO SCH (21:40)
[2017-11-16] MEDS: DOCUSATE NA 100 MG CAP PO SCH (21:41)
[2017-11-16] MEDS: TAMSULOSIN 0.4 MG SR CAP PO SCH (21:41)
[2017-11-17 01:01] LABS: Hematocrit 28.9 % (39.6-49.0)
[2017-11-17 06:03] LABS: Absolute Lymphocytes (CBC) 0.7 K/uL (0.7-4.9); Absolute Monocytes 0.7 K/uL (0.1-1.3); Absolute Neutrophil 3.2 K/uL (1.8-8.0); Eosinophils % 11.7 % (0-4.4); Hematocrit 28.1 % (39.6-49.0); Lymphocytes % 13.4 % (15.3-44.8); MCH 31.6 pg (27.0-35.0); MCV 89.8 fL (80-100); MPV 9.6 fL (7.6-11.3); Monocytes % 12.4 % (3.3-12.3); RBC Red Blood Cell Count 3.13 M/uL (4.33-5.43)
[2017-11-17 06:13] LABS: Albumin 2.2 g/dL (3.2-5.5); Bilirubin Total 0.7 mg/dL (0.3-1.2); Potassium 3.9 mEq/L (3.6-5.0); Protein, Total 4.6 g/dL (6.0-8.3)
[2017-11-17] MEDS ORDERED: POTASSIUM 25 MEQ EFFERV TAB PO ONE (08:00)
--- NOTE | 2017-11-17 08:13 | ECHO ---
HEIGHT: 5 ft 10 in WEIGHT: 184 lb 15.838 oz DATE OF STUDY: 11/16/[address]: Portillo Hernández MD 2-DIMENSIONAL: YES M.MODE: YES DOPPLER: YES COLOR FLOW: YES TDS: YES PORTABLE: DEFINITY: BUBBLE STUDY: DIAGNOSIS: CARDIOMYOPATHY CARDIAC HISTORY: CATHERIZATION: SURGERY: PROSTHETIC VALVE: PACEMAKER: MEASUREMENTS (cm) DIASTOLIC (NORMALS) SYSTOLIC (NORMALS) IVSd (0.6-1.2) LA Diam 4.6 (1.9-4.0) LVEF 40-45% LVIDd (3.5-5.7) LVIDs (2.0-3.5) %FS % LVPWd (0.6-1.2) Ao Diam 3.3 (2.0-3.7) 2 DIMENSIONAL ASSESSMENT: RIGHT ATRIUM: NORMAL LEFT ATRIUM: DILATED RIGHT VENTRICLE: NORMAL LEFT VENTRICLE: DILATED TRICUSPID VALVE: NORMAL MITRAL VALVE: NORMAL PULMONIC VALVE: NORMAL AORTIC VALVE: NORMAL PERICARDIAL EFFUSION: NONE AORTIC ROOT: NORMAL LEFT VENTRICULAR WALL MOTION: MILD GLOBAL HYPOKINESIS DOPPLER/COLOR FLOW: MILD AORTIC AND MITRAL REGURGITATION. TRACE TRICUSPID REGURGITATION. NO STENOSIS. UNABLE TO ESTIMATED RIGHT VENTRICULAR SYSTOLIC PRESSURE. COMMENTS: DEPRESSED LEFT VENTRICULAR EJECTION FRACTION. DILATED LEFT ATRIUM AND LEFT VENTRICLE. AORTIC SCLEROSIS WITH NO STENOSIS. MILD AND MITRAL AORTIC REGURGITATION. TRACE TRICUSPID REGURGITATION. TECHNOLOGIST: ROWAN TORRES
[2017-11-17] MEDS ORDERED: HOME MED 1 EA UNK (Ascorbic Acid [Vitamin C] 500 MG) PO SCH (09:00)
[2017-11-17] MEDS: LISINOPRIL 5 MG TAB PO SCH (09:19)
[2017-11-17] MEDS: ASCORBIC ACID 500 MG TABLET PO SCH (09:19)
[2017-11-17] MEDS: DOCUSATE NA 100 MG CAP PO SCH ×2 (09:20→21:21)
[2017-11-17] MEDS: AMOX TR/K CLAV 400MG CHEW TAB PO SCH ×2 (09:20→21:21)
--- NOTE | 2017-11-17 09:38 | P.PN ---
Subjective Date of Service: 11/17/17 Chief Complaint: hip fracture Subjective: No new changes pain controlled Physical Examination - Vital Signs Temperature: 97.9 F Blood Pressure: 134/68 Pulse: 72 Respirations: 20 Pulse Ox (%): 96 - Physical Exam General: Alert, In no apparent distress Musculoskeletal: Other (LLE: ttp over left hip; pain with ROM of the left hip; NVI distally) Assessment And Plan - Plan Stephon is an 87 yo male with a left displaced femoral neck fracture -I discussed with the patient and his grandson, Miah Bhat, at length his diagnosis and treatment options including left hip hemiarthroplasty and nonoperative care. Cardiology has evaluated the patient and he is a very high risk surgical candidate given his diminished ejection fracture and current use of a life vest. He has recent history of stroke and also had a CT scan which demonstrated a cavitary lesion within his lungs. I informed the patient and his family with surgical treatment there is high risk of perioperative morbidity and mortality. With nonoperative treatment, he would likely be bedbound and be at risk for DVT, PE, bedsores. They expressed understanding and would like to pursue operative treatment. I discussed case with Dr. Johnson and recommended patient for transfer for higher level of care given his extensive cardiac history. The patient and his family are aware of the plan for transfer.
--- NOTE | 2017-11-17 12:39 | CON ---
Date of Consultation: 11/16/[address] Johnson's service on 11/16/2017, THE patient seen on 11/16/2017. Reason For Consultation: Cardiac clearance for left hip surgery by Dr. Bethea. History Of Present Illness: Mr. Garcia is an 87-year-old white male. He has an extensive past medic al history. He recently left [facility] following following a stroke, appeared to have had arr hythmia. He has a LifeVest on. He has had recent acute kidney failure, coronary artery disease, atr ial fibrillation, dementia, hyperlipidemia, and dysphagia. He has had MRSA to the left ear, COPD, CV A, and hypertension. He has no cardiac symptoms. He had just fallen and broken his hip. Allergies: NONE. Review of Systems: Negative. Medications: Presently include vancomycin, clopidogrel, Flomax Lovenox, lisinopril, aspirin, vitamin C, Colace, Lipitor 40 mg daily, inhalers, and pain medications. Review of Systems: Negative. Social History: Negative. Family History: Noncontributory. Physical Examination: Vital signs: Stable. His blood pressure was 129/79. He was afebrile. He was in sinus rhythm. HEENT: Negative. Neck: Supple. No bruits. Chest: Clear to auscultation and percussion. Cardiac: Revealed a regular rhythm and rate without any murmurs, gallops, or rubs. Abdomen: Benign. Extremities: Revealed no clubbing, cyanosis, or edema. Laboratory Data: Creatinine is 1.67. Chest x-ray unremarkable. EKG showed nonspecific changes. He moglobin is 10.1 with a with a normal white count, normal platelets, normal PT and INR. Troponins we re unremarkable. BNP was normal. 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 Recently after an admission to [facility] ended up with a LifeVest. I am not so sure the details of that. W e do not have any records. I am assuming, he has had an echocardiogram there, but I would like to re peat one here before making final decision, but nevertheless, with his age in kidney function and his congestive heart failure, he is at least at moderate risk to undergo surgery. I will have the case discussed further with Dr. Bethea. I will continue his present regimen. He is not in clinical congest yahir heart failure and certainly does not require any diuresis, but I would definitely watch his I's a nd O's postoperatively if the time comes. His other problems include chronic atrial fibrillation gerald t has resolved, dementia, dyslipidemia that is controlled, and chronic obstructive pulmonary disease. He is being seen by Dr. Laboy. His hypertension is well controlled. Has had a recent cerebrova scular accident. We will follow the patient along. We will see what his echocardiogram shows today. JAMAAL/ESAU Voice ID: [id number] Report ID: [id number]
--- NOTE | 2017-11-17 16:29 | P.PN ---
Subjective Date of Service: 11/17/17 Chief Complaint: hip fracture Pt seen and examined at bedside. Chart Reviewed. Case DW with Ortho, Cardiology and Pulmonology. Currently awaiitn Grandson to come by to make a decision on placement in terms of hospice vs DC home vs transfer to another facility for operative mgmt. Review of Systems General: As per HPI Physical Examination - Vital Signs Temperature: 97.9 F Blood Pressure: 111/64 Pulse: 74 Respirations: 20 Pulse Ox (%): 92 - Physical Exam General: Alert, In no apparent distress, Demented HEENT: Atraumatic Neck: Supple, JVD not distended Respiratory: Clear to auscultation bilaterally, Normal air movement Cardiovascular: Regular rate/rhythm, Normal S1 S2 Gastrointestinal: Normal bowel sounds, No tenderness Musculoskeletal: Tenderness Integumentary: No rashes Neurological: Normal speech, Normal tone, Normal affect Lymphatics: No axilla or inguinal lymphadenopathy - Studies Medications List Reviewed: Yes Assessment & Plan - Problems (Diagnosis) (1) Hip fracture Onset Date: 11/16/17 Current Visit: Yes Status: Acute Plan: Intratrochanteric Fracture of the hip -Ortho consulted. Appreciate reccs -High risk for Operative measure due to Extensive Cardiac and pulmonology history -Nonoperative mgmt at this time -PT consulted for Bed transfers -Hospice Consulted for possible placement Qualifiers: Encounter type: initial encounter Fracture type: closed Laterality: left Qualified Code(s): S72.002A - Fracture of unspecified part of neck of left femur, initial encounter for closed fracture (2) Cavitary pneumonia Current Visit: Yes Status: Acute Plan: Pulmonology consulted. -PO augmentin for now (3) CKD (chronic kidney disease) Onset Date: 11/16/17 Current Visit: Yes Status: Chronic Qualifiers: Chronic kidney disease stage: stage 3 (moderate) Qualified Code(s): N18.3 - Chronic kidney disease, stage 3 (moderate) (4) COPD (chronic obstructive pulmonary disease) Onset Date: 11/16/17 Current Visit: Yes Status: Chronic Qualifiers: COPD type: unspecified COPD Qualified Code(s): J44.9 - Chronic obstructive pulmonary disease, unspecified (5) HTN (hypertension) Onset Date: 11/16/17 Current Visit: Yes Status: Chronic Qualifiers: Hypertension type: essential hypertension Qualified Code(s): I10 - Essential (primary) hypertension (6) CAD (coronary artery disease) Current Visit: Yes Status: Acute Plan: 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 High risk for surgery. Qualifiers: Coronary Disease-Associated Artery/Lesion type: [place] artery [place] vs. transplanted heart: [place] heart Associated angina: with stable angina Qualified Code(s): I25.118 - Atherosclerotic heart disease of [place] coronary artery with other forms of angina pectoris Discharge Plan: Home Plan to discharge in: 48 Hours - Code Status/Comfort Care Code Status Assessed: Yes Critical Care: No
[2017-11-17] MEDS: ATORVASTATIN 40 MG TAB PO SCH (21:21)
[2017-11-17] MEDS: TAMSULOSIN 0.4 MG SR CAP PO SCH (21:22)
--- NOTE | 2017-11-17 23:27 | CON ---
History Of Present Illness: An 87-year-old gentleman who fell and broke his hip. 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 He wears a LifeVest for cardiac issues. He is a poor surgical gary date for hip replacement. He was found to have urinary retention with about 800 cc of urine in the b ladder, which when they placed the catheter, had some gross hematuria after it was decompressed too f ast, so he was placed on manual irrigation, it is now clear today. The issue is not a problem. The patient is a poor surgical candidate for hip fixation. No one in the [place] area would like to take him due to his medical condition. He has urinary retention and hydronephrosis in the right kidney w ith hydroureter. The left kidney is atrophic, most likely 15% or less function. It probably would b e a need something done for bladder outlet obstruction. Currently, we can only offer him a Iraheta cat heter that can be changed once a month due to his medical condition and high risk for surgery. He is certainly not a TURP candidate either. Allergies: NO KNOWN DRUG ALLERGIES. Past Medical History: Chronic kidney disease, COPD, MRSA, fever, hypertension, and dementia. Past Surgical History: Reviewed, noncontributory. Family History: Noncontributory. Social History: No alcohol. No drug use. Resides in a skilled nursing. Review of Systems: A 10-point review of systems is otherwise unremarkable. Physical Examination: Vital Signs: Afebrile, stable. General: Alert. No distress. HEENT: Atraumatic, normocephalic. Neck: Supple. Respiratory: Clear. Chest: He is wearing a LifeVest. Gastrointestinal: Normal bowel sounds. Musculoskeletal: Nontender. Genitourinary: Iraheta catheter is draining clear urine. Laboratory Studies: Reviewed. PT 12, INR 1.0, and PTT 26. White count 6.3, H and H 11 and 33, and platelet count 161. Chemistries negative. Assessment: The patient has multiple medical problems, poor surgical candidate for any type of surge ry. Ejection fraction 10%. Has a current hip fracture that will be treated conservatively of the le ft femur. Also urinary retention will be treated conservatively with Iraheta catheters can be changed once a month and the patient can be placed on prophylactic antibiotics once a day. Plan: Plan is for him to go back to the skilled nursing and conservative management. DAVID/ESAU Voice ID: [id number] Report ID: [id number]
[2017-11-18] MEDS: DOCUSATE NA 100 MG CAP PO SCH (09:00)
[2017-11-18] MEDS: AMOX TR/K CLAV 400MG CHEW TAB PO SCH (09:08)
[2017-11-18] MEDS: LISINOPRIL 5 MG TAB PO SCH (09:08)
[2017-11-18] MEDS: ASCORBIC ACID 500 MG TABLET PO SCH (09:08)
--- NOTE | 2017-11-18 13:37 | PN ---
Subjective: The patient is doing well. Objective: Urine is clear. Vital signs: Temperature 98.2, pulse 66, respirations 20, blood pressure 137/65 , 95% sat. Assessment: Urinary retention, status post fractured hip. Plan: Plan is for conservative management. Unable to do surgery due to very low ejection fraction 10%. The patient is going well overall. We will change catheter once a month, Macrodantin 50 mg once a day with food. DAVID/ESAU Voice ID: [id number] Report ID: [id number] MTDD
--- NOTE | 2017-11-18 13:43 | P.DS ---
Admission Date: 11/16/17 Discharge Date: 11/18/17 Disposition: HOSPICE-MEDICAL FACILITY Discharge Condition: FAIR Reason for Admission: hip fracture Consultations: ORtho, Cardiology, Pulmonology, Urology - Problems (1) Hip fracture Onset Date: 11/16/17 Current Visit: Yes Status: Acute Qualifiers: Encounter type: initial encounter Fracture type: closed Laterality: left Qualified Code(s): S72.002A - Fracture of unspecified part of neck of left femur, initial encounter for closed fracture (2) Cavitary pneumonia Current Visit: Yes Status: Acute (3) CKD (chronic kidney disease) Onset Date: 11/16/17 Current Visit: Yes Status: Chronic Qualifiers: Chronic kidney disease stage: stage 3 (moderate) Qualified Code(s): N18.3 - Chronic kidney disease, stage 3 (moderate) (4) COPD (chronic obstructive pulmonary disease) Onset Date: 11/16/17 Current Visit: Yes Status: Chronic Qualifiers: COPD type: unspecified COPD Qualified Code(s): J44.9 - Chronic obstructive pulmonary disease, unspecified (5) HTN (hypertension) Onset Date: 11/16/17 Current Visit: Yes Status: Chronic Qualifiers: Hypertension type: essential hypertension Qualified Code(s): I10 - Essential (primary) hypertension (6) CAD (coronary artery disease) Current Visit: Yes Status: Acute Qualifiers: Coronary Disease-Associated Artery/Lesion type: [place] artery [place] vs. transplanted heart: [place] heart Associated angina: with stable angina Qualified Code(s): I25.118 - Atherosclerotic heart disease of [place] coronary artery with other forms of angina pectoris Brief History of Present Illness: Mr Garcia is an 87 yeas old male with multiple medical problems including COPD, dementia, HTN, CKD, resident of [facility], currently treated with IV Vancomycin due to left ear infection positive for MRSA. The patient sustained a fall yesterday, landing over his left side. The patient then start complaining of left hip pain, unable to bear weight on the left leg. Hip XR was ordered on the half-way, it was remarkable for left hip fracture. In ER he had trauma work up. CT chest was remarkable for a right lower lobe cavitary lesion with signs of necrosis and possible abscess. No fever documented. Hospital Course: Overall during the hospital stay patient remained stable The patient was initially admitted to the hospital after sustaining a fall and having a hip fracture at the [facility]. Patient was admitted to the [facility] facility for IV antibiotics for his otitis externa which was positive for MRSA. Patient was receiving Iv vancomycin at the nursing facility. Patient was found to have a fall and had an x-ray done at the facility which was consistent with intratrochanteric hip fracture. Patient was then transferred over to the hospital for further care. While here in the hospital patient had a orthopedic referral done. Due to extensive history of cardiac disease with 6 CABG and life vest, cardiology was also consulted to evaluate for surgical risk. Patient was deemed high risk for surgery and thus medical management was opted rather than surgical management for the patient. Ortho and family medicine had extensive discussion with the patient along with the son who was the POA regarding the need for medical management rather than surgical management and the risk outweighs the benefit of surgery at this time. Long-term prognosis was also discussed family opted to choose hospice for the patient given the poor prognosis and declining quality of life. Patient was enrolled in hospice and then was discharged home under stable condition. Patient was also treated for right lower lobe pneumonia while here in the hospital and was discharged on Augmentin. Patient had finished his IV vancomycin dosage and thus that was not continued at the nursing facility. While here in the hospital initially patient also had acute kidney injury along with hematuria. Urology was consulted and recommended that have a Iraheta catheter placed and removed/or reevalution be done at the office in month. Patient was then discharged home under stable condition. patient to follow up with urology, Ortho cardiology, hospice doctor for further care Vital Signs/Physical Exam: Temp Pulse Resp BP Pulse Ox 97.2 F 73 16 124/56 L 94 11/18/17 12:11/18/17 12:11/18/17 12:00 11/18/17 12:11/18/17 12:00 General: Alert, In no apparent distress, Demented HEENT: Atraumatic, PERRLA, EOMI Neck: Supple, JVD not distended Respiratory: Clear to auscultation bilaterally, Normal air movement Cardiovascular: Regular rate/rhythm, Normal S1 S2 Gastrointestinal: Normal bowel sounds, No tenderness Musculoskeletal: No tenderness Integumentary: No rashes Neurological: Normal speech, Normal tone, Normal affect Lymphatics: No axilla or inguinal lymphadenopathy Laboratory Data at Discharge: WBC 5.3 K/uL (4.3-10.9) D 11/17/17 05:36 Hgb 9.9 g/dL (13.6-17.9) L 11/17/17 05:36 Hct 28.1 % (39.6-49.0) L 11/17/17 05:36 Plt Count 152 K/uL (152-406) 11/17/17 05:36 PT 12.2 SECONDS (9.5-12.5) 11/16/17 01:43 INR 1.03 11/16/17 01:43 APTT 25.7 SECONDS (24.3-36.9) 11/16/17 01:43 Sodium 138 mEq/L (135-145) 11/17/17 05:36 Potassium 3.9 mEq/L (3.6-5.0) 11/17/17 05:36 BUN 24 mg/dL (6-20) H 11/17/17 05:36 Creatinine 1.67 mg/dL (0.61-1.24) H 11/17/17 05:36 Glucose 97 mg/dL (65-120) 11/17/17 05:36 Magnesium 1.9 mg/dL (1.8-2.5) 11/16/17 01:43 Total Bilirubin 0.7 mg/dL (0.3-1.2) 11/17/17 05:36 AST 16 IU/L (10-42) 11/17/17 05:36 ALT 17 IU/L (10-60) 11/17/17 05:36 Alkaline Phosphatase 51 IU/L (42-121) 11/17/17 05:36 B-Natriuretic Peptide 305 pg/ml (<=100) H 11/16/17 01:43 Home Medications: Acetaminophen 325 mg PO Q4H PRN 11/16/17 Albuterol Inhaler [Ventolin Inhaler*] 2.5 inh XX Q8H PRN 11/16/17 Ascorbic Acid [Vitamin C] 500 mg PO DAILY 11/16/17 Aspirin [Aspirin EC 81 MG] 81 mg PO DAILY 11/16/17 Atorvastatin Calcium [Lipitor] 40 mg PO BEDTIME 11/16/17 Clopidogrel Bisulfate [Plavix*] 75 mg PO DAILY 11/16/17 Codeine/APAP [Tylenol #3*] 1 tab PO Q4H PRN 11/16/17 Docusate [Colace Cap*] 100 mg PO BID 11/16/17 Enoxaparin Sodium [Lovenox 30 MG INJ*] 30 mg SQ DAILY 11/16/17 Lisinopril 5 mg PO DAILY 11/16/17 Tamsulosin [Flomax*] 0.4 mg PO BEDTIME 11/16/17 Amox/Clavulanate [Augmentin 400 mg Tab*] 400 mg PO BID #20 tab.chew 11/18/17 New Medications: Amox/Clavulanate [Augmentin 400 mg Tab*] 400 mg PO BID #20 tab.chew Diet: Regular Activity: Ad josefina Followup: Portillo Hernández MD [ACTIVE - CAN ADMIT] - 1 Week Neel Bethea MD [ACTIVE - CAN ADMIT] - 1 Week
== END 2017-11-18 15:42 | disposition hospice, inpatient (51) | DRG 535 ==
LOC: ER 00:48 → 2ND 04:36
PROVIDERS: ADMIT Internal Medicine; ATTEND Family Medicine
DX: S72.142A Displaced intertrochanteric fracture of left femur, initial encounter for closed fracture (principal); J18.9 Pneumonia, unspecified organism; N17.9 Acute kidney failure, unspecified; N13.30 Unspecified hydronephrosis; I13.0 Hypertensive heart and chronic kidney disease with heart failure and stage 1 through stage 4 chronic kidney disease, or unspecified chronic kidney disease; I50.22 Chronic systolic (congestive) heart failure; J44.0 Chronic obstructive pulmonary disease with (acute) lower respiratory infection; W01.0XXA Fall on same level from slipping, tripping and stumbling without subsequent striking against object, initial encounter; Y92.129 Unspecified place in nursing home as the place of occurrence of the external cause; E78.5 Hyperlipidemia, unspecified; R41.841 Cognitive communication deficit; N18.3 Chronic kidney disease, stage 3 (moderate); I25.118 Atherosclerotic heart disease of native coronary artery with other forms of angina pectoris; F03.90 Unspecified dementia, unspecified severity, without behavioral disturbance, psychotic disturbance, mood disturbance, and anxiety; B95.62 Methicillin resistant Staphylococcus aureus infection as the cause of diseases classified elsewhere; H60.92 Unspecified otitis externa, left ear; Z79.02 Long term (current) use of antithrombotics/antiplatelets; Z79.82 Long term (current) use of aspirin; R33.9 Retention of urine, unspecified; R13.10 Dysphagia, unspecified; I48.2 Chronic atrial fibrillation; Z51.5 Encounter for palliative care; Z66 Do not resuscitate; J98.4 Other disorders of lung
CPT/HCPCS: 36415; 51702; 70450; 71045; 71250; 72125; 72170; 74176; 80048; 80053; 80076; 80202; 81003; 82550; 82553; 83735; 83880; 84484; 85014; 85018; 85025; 85610; 85730; 86850; 86900; 86901; 87040; 93005; 93306; 96365; 96375; 99285; J3010; J7030